=== PATIENT | female | born 1980 | race African-American/Black ===

== ENCOUNTER 2017-08-21 08:34 | Emergency (ER) | payer OTHER, SELFPAY ==
[2017-08-21 09:03] LABS: Bilirubin Negative (Negative); Blood, Urine Negative (Negative); Clarity CLEAR (Clear); Glucose, Urine (Dipstick) Negative (Negative); Leukocyte Trace (Negative); Nitrite Negative (Negative); Protein, Urine (Dipstick) Negative (Neg-Trace); Specific Gravity, Urine 1.015 (1.002-1.036); Urobilinogen 0.2 mg/dL (0.2-1.0)
[2017-08-21 09:05] LABS: Bacteria/HPF None Seen HPF (None Seen); Hyaline Casts/LPF 0-3 HYALINE CAST LPF (0-3 Hyaline); Pathc Cast-AUWi Flag 0.13 (0-2.49); RBC/HPF 0-3 HPF (0-3); Squamous Epithelial 0-3 HPF (0-3); WBC/HPF 0-3 HPF (0-3)
[2017-08-21 09:28] LABS: #Eosinphils 0.1 thou/uL (0.0-0.7); #Lymphocytes 1.5 thou/uL (1.20-3.40); #Monocytes 0.6 thou/uL (0.11-0.59); #Neutrophils 4.2 thou/uL (1.40-6.50); %Basophils 0.6 % (0.0-1.0); %Eosinophils 1.5 % (0.0-10.0); %Lymphocytes 23.5 % (21.0-51.0); %Monocytes 9.9 % (0.0-10.0); %Neutrophils 64.7 % (42.0-75.0); Hemoglobin 13.6 g/dL (12.0-16.0); Mean Corpuscular HGB CONC 32.3 g/dL (32.0-36.0); Mean Corpuscular Hemoglobin 28.2 pg (27.0-31.0); Mean Corpuscular Volume 87.5 fl (81.0-99.0); Mean Platelet Volume 7.4 fL (7.4-10.4); Platelet Count 366 thou/uL (130-400); RBC Distribution Width 13.9 % (11.5-14.5); Red Blood Cell (RBC) Count 4.81 mill/uL (4.20-5.40); White Blood Cell (WBC) Count 6.5 thou/uL (4.8-10.8)
[2017-08-21 09:33] LABS: BHCG - Serum Negative (NEGATIVE); Pregs Control Background? CLEAR/WHITE (CLR/WHITE); Pregs Control Bar Appear? YES (CONTROL BAR)
[2017-08-21] MEDS ORDERED: Ketorolac Tromethamine 30 MG/ML VIAL ONE (09:42)
[2017-08-21] MEDS ORDERED: Dexamethasone 4 mg/ml Vial ONE (09:42)
[2017-08-21 09:57] LABS: ALT (SGPT) 13 U/L (8-55); AST (SGOT) 15 U/L (5-34); Albumin 4.7 g/dL (3.5-5.0); Alkaline Phosphatase 88 U/L (40-150); Anion Gap 14 mmol/L (10-20); BUN (Urea Nitrogen) 5 mg/dL (7.0-18.7); Bilirubin, Total 0.4 mg/dL (0.2-1.2); Calc. Creatinine Clearance 0 mL/min (70-130); Calcium 10.6 mg/dL (7.8-10.44); Carbon Dioxide 25 mmol/L (22-29); Chloride 100 mmol/L (98-107); Estimated GFR-MDRD 88; Globulin 3.5 g/dL (2.4-3.5); Glucose 96 mg/dL (70-105); Lipase 7 U/L (8-78); Potassium 3.4 mmol/L (3.5-5.1); Protein, Total 8.2 g/dL (6.0-8.3); Sodium 136 mmol/L (136-145)
--- NOTE | 2017-08-21 10:23 | CT ---
CT OF THE ABDOMEN AND PELVIS: DATE: 08/21/17. COMPARISON: 03/12/17. HISTORY: Right lower quadrant pain radiating to the right lower back, urinary frequency, and nausea. TECHNIQUE: Serial axial CT imaging is obtained at 5 mm intervals from lung bases through pubic symphysis without contrast. Coronal reformatted imaging obtained. FINDINGS: The lack of contrast media limits assessment of the viscera, bowel, vascular structures, and for lymp hadenopathy. The imaged lung bases appear unremarkable. No free intraperitoneal air or fluid is seen. A fat-containing umbilical hernia is present. The liver, spleen, pancreas, and adrenal glands are grossly unremarkable. There is mild hyperdensity within the gallbladder layering posteriorly, stable, which may signify gallbladder sludge. There is a nonobstructing stone within the lower pole of the left kidney measuring in the 4-5 mm rang e. There is no evidence for obstructive uropathy on the left. The right kidney is atrophic and demonstrates punctate calcifications within the upper and lower pole regions which may signify vascular calcification, cortical calcification, and/or nonobstructing intr arenal stones. There is no evidence for obstructive uropathy on the right. Limited assessment of the bowel demonstrates no evidence for obstruction. The appendix is visualized and is normal. No acute osseous abnormality. IMPRESSION: 1. Subcentimeter renal calcifications bilaterally as above. Stable atrophic right kidney with no ev idence for obstructive uropathy on either side. 2. No evidence for appendicitis. POS: [facility]
[2017-08-21] MEDS ORDERED: Metoclopramide HCl 10 MG/2 ML VIAL ONE (10:25)
== END 2017-08-21 11:13 | disposition home or self-care (01) ==
LOC: ERS 08:34
DX: R10.31 Right lower quadrant pain (principal); R51 Headache; I10 Essential (primary) hypertension; F41.0 Panic disorder [episodic paroxysmal anxiety]; Z79.899 Other long term (current) drug therapy
CPT/HCPCS: 36415; 74176; 80053; 81003; 81015; 83690; 84703; 85025; 96361; 96365; 96375; J1100; J1885; J2765

== ENCOUNTER 2017-10-08 23:30 | Emergency (ER) | payer SELFPAY ==
[2017-10-09 00:20] LABS: #Basophils 0.1 thou/uL (0.0-0.2); #Eosinphils 0.2 thou/uL (0.0-0.7); #Lymphocytes 2.7 thou/uL (1.20-3.40); #Monocytes 1.1 thou/uL (0.11-0.59); %Basophils 0.8 % (0.0-1.0); %Eosinophils 2.7 % (0.0-10.0); %Lymphocytes 29.3 % (21.0-51.0); %Monocytes 12.5 % (0.0-10.0); %Neutrophils 54.7 % (42.0-75.0); Hemoglobin 11.7 g/dL (12.0-16.0); Mean Corpuscular HGB CONC 32.5 g/dL (32.0-36.0); Mean Corpuscular Hemoglobin 28.2 pg (27.0-31.0); Mean Corpuscular Volume 86.8 fl (81.0-99.0); Platelet Count 352 thou/uL (130-400); RBC Distribution Width 14.5 % (11.5-14.5); Red Blood Cell (RBC) Count 4.15 mill/uL (4.20-5.40); White Blood Cell (WBC) Count 9.1 thou/uL (4.8-10.8)
[2017-10-09 00:21] LABS: Pregnancy Test - Urine (BHCG) Negative (Negative); Pregu Control Background? CLEAR/WHITE (CLR/WHITE); Pregu Control Bar Appear? YES (CONTROL BAR)
[2017-10-09 00:27] LABS: Bacteria/HPF Rare-Few HPF (None Seen); Bilirubin Negative (Negative); Blood, Urine Negative (Negative); Clarity CLEAR (Clear); Glucose, Urine (Dipstick) Negative (Negative); Hyaline Casts/LPF 0-3 HYALINE CAST LPF (0-3 Hyaline); Leukocyte Small (Negative); Nitrite Negative (Negative); Pathc Cast-AUWi Flag 0.13 (0-2.49); Protein, Urine (Dipstick) Negative (Neg-Trace); RBC/HPF 0-3 HPF (0-3); Specific Gravity 1.019 (1.002-1.036); Specific Gravity, Urine 1.019 (1.002-1.036); Squamous Epithelial 0-3 HPF (0-3); Urobilinogen 0.2 mg/dL (0.2-1.0); pH, Urine 6.5 (5.0-9.0)
[2017-10-09] MEDS ORDERED: Ketorolac Tromethamine 30 MG/ML VIAL ONE (00:37)
[2017-10-09 00:42] LABS: ALT (SGPT) 11 U/L (8-55); AST (SGOT) 18 U/L (5-34); Alkaline Phosphatase 78 U/L (40-150); Anion Gap 11 mmol/L (10-20); BUN (Urea Nitrogen) 14 mg/dL (7.0-18.7); Bilirubin, Total 0.2 mg/dL (0.2-1.2); Calc. Creatinine Clearance 0 mL/min (70-130); Calcium 9.3 mg/dL (7.8-10.44); Carbon Dioxide 24 mmol/L (22-29); Chloride 106 mmol/L (98-107); Estimated GFR-MDRD 86; Glucose 104 mg/dL (70-105); Potassium 4.1 mmol/L (3.5-5.1); Sodium 137 mmol/L (136-145)
--- NOTE | 2017-10-09 07:23 | CT ---
CT OF THE ABDOMEN AND PELVIS: Date: 10/09/17 COMPARISON: 08/21/17. HISTORY: Right flank pain, history of kidney stones, dysuria. TECHNIQUE: Serial axial CT imaging is obtained at 5 mm intervals from lung bases through pubic symphysis without contrast. Coronal reformatted imaging obtained. FINDINGS: The lack of contrast media limits assessment of the viscera, bowel vascular structures, and for lymph adenopathy. The imaged lung bases are unremarkable. No free intraperitoneal air is noted. The liver, spleen, gallbladder, pancreas, and adrenal glands are unremarkable. Right kidney is atrophic and demonstrates cortical thinning, similar when compared to the prior exam. Punctate calcification overlies the inferior cortex of right kidney. No evidence for obstructive uropathy is seen on the right. There is nonobstructing stone noted in lower pole of left kidney measuring in the 4-5 mm range, stabl e. There is no evidence for obstructive uropathy on the left. There is mild diverticulosis of the sigmoid colon. No evidence for diverticulitis. Limited assessment of the bowel demonstrates no evidence for inflammatory change or obstruction. Osseous structures demonstrate no acute findings. There is lower lumbar spine facet hypertrophy and degenerative change at the lumbosacral junction. IMPRESSION: No acute findings. Stable CT abdomen and pelvis. POS: [facility]
[2017-10-09 22:44] LABS: Chlamydia by PCR Not Detected (NotDetected); GC by PCR Not Detected (NotDetected)
== END 2017-10-09 02:27 | disposition home or self-care (01) ==
LOC: ERS 23:30
DX: R10.9 Unspecified abdominal pain (principal); R30.0 Dysuria; F41.0 Panic disorder [episodic paroxysmal anxiety]; I10 Essential (primary) hypertension; Z87.442 Personal history of urinary calculi; Z79.899 Other long term (current) drug therapy
CPT/HCPCS: 74176; 80053; 81003; 81015; 81025; 85025; 87086; 87480; 87491; 87510; 87591; 87660; 96361; 96372; 96374; J1885

== ENCOUNTER 2018-05-15 16:23 | Emergency (ER) | payer SELFPAY ==
[2018-05-15 16:39] LABS: Bilirubin Negative (Negative); Blood, Urine Negative (Negative); Clarity CLEAR (Clear); Glucose, Urine (Dipstick) Negative (Negative); Leukocyte Negative (Negative); Nitrite Negative (Negative); Protein, Urine (Dipstick) Negative (Neg-Trace); Specific Gravity, Urine 1.016 (1.002-1.036); Urobilinogen 0.2 mg/dL (0.2-1.0); pH, Urine 6.5 (5.0-9.0)
[2018-05-15 16:40] LABS: Pregnancy Test - Urine (BHCG) Negative (Negative); Pregu Control Background? CLEAR/WHITE (CLR/WHITE); Pregu Control Bar Appear? YES (CONTROL BAR); Specific Gravity 1.016 (1.002-1.036)
[2018-05-15] MEDS ORDERED: Ketorolac Tromethamine 30 MG/ML VIAL ONE (17:56)
== END 2018-05-15 18:41 | disposition home or self-care (01) ==
LOC: ERS 16:23
DX: M54.16 Radiculopathy, lumbar region (principal); R30.0 Dysuria; F41.9 Anxiety disorder, unspecified; Z79.899 Other long term (current) drug therapy
CPT/HCPCS: 81003; 81025; 96372; J1885

== ENCOUNTER 2018-09-15 08:56 | Emergency (ER) | payer SELFPAY ==
[2018-09-15] MEDS ORDERED: Ondansetron ODT 4 MG TAB ONE (09:06)
[2018-09-15 09:40] LABS: #Basophils 0.1 thou/uL (0.0-0.2); #Eosinphils 0.5 thou/uL (0.0-0.7); #Monocytes 0.8 thou/uL (0.11-0.59); #Neutrophils 5.3 thou/uL (1.40-6.50); %Basophils 1.2 % (0.0-1.0); %Eosinophils 5.6 % (0.0-10.0); %Lymphocytes 23.6 % (21.0-51.0); %Monocytes 8.8 % (0.0-10.0); %Neutrophils 60.9 % (42.0-75.0); Hemoglobin 11.8 g/dL (12.0-16.0); Mean Corpuscular HGB CONC 32.5 g/dL (32.0-36.0); Mean Corpuscular Hemoglobin 27.6 pg (27.0-31.0); Mean Platelet Volume 6.8 fL (7.4-10.4); Platelet Count 436 thou/uL (130-400); RBC Distribution Width 14.3 % (11.5-14.5); Red Blood Cell (RBC) Count 4.26 mill/uL (4.20-5.40); White Blood Cell (WBC) Count 8.7 thou/uL (4.8-10.8)
[2018-09-15 09:59] LABS: ALT (SGPT) 27 U/L (8-55); AST (SGOT) 15 U/L (5-34); Albumin 4.3 g/dL (3.5-5.0); Alkaline Phosphatase 104 U/L (40-150); Anion Gap 13 mmol/L (10-20); BUN (Urea Nitrogen) 11 mg/dL (7.0-18.7); Bilirubin, Total 0.3 mg/dL (0.2-1.2); Calc. Creatinine Clearance 0 mL/min (70-130); Calcium 9.3 mg/dL (7.8-10.44); Carbon Dioxide 25 mmol/L (22-29); Chloride 104 mmol/L (98-107); Estimated GFR-MDRD Greater than 90; Globulin 2.9 g/dL (2.4-3.5); Glucose 118 mg/dL (70-105); Lipase 70 U/L (8-78); Potassium 3.6 mmol/L (3.5-5.1); Protein, Total 7.2 g/dL (6.0-8.3); Sodium 138 mmol/L (136-145)
[2018-09-15 10:59] LABS: Bilirubin Negative (Negative); Blood, Urine Negative (Negative); Clarity CLEAR (Clear); Glucose, Urine (Dipstick) Negative (Negative); Leukocyte Negative (Negative); Nitrite Negative (Negative); Protein, Urine (Dipstick) Negative (Neg-Trace); Specific Gravity, Urine 1.016 (1.002-1.036); Urobilinogen 0.2 mg/dL (0.2-1.0)
[2018-09-15 11:01] LABS: Pregnancy Test - Urine (BHCG) Negative (Negative); Pregu Control Background? CLEAR/WHITE (CLR/WHITE); Pregu Control Bar Appear? YES (CONTROL BAR); Specific Gravity 1.016 (1.002-1.036)
--- NOTE | 2018-09-15 11:41 | RAD ---
LUMBAR SPINE THREE VIEWS: INDICATIONS: Fall with injury to back. FINDINGS: Lumbar vertebrae maintain normal height and alignment. Disk spaces are maintained. No evidence of s pondylolisthesis or spondylolysis. Five lumbar type vertebrae. IMPRESSION: Unremarkable lumbar spine. POS: [facility]
== END 2018-09-15 15:09 | disposition home or self-care (01) ==
LOC: ERS 08:56
DX: R11.10 Vomiting, unspecified (principal); R19.7 Diarrhea, unspecified; M54.5 Low back pain; I10 Essential (primary) hypertension; F41.0 Panic disorder [episodic paroxysmal anxiety]; W19.XXXA Unspecified fall, initial encounter
CPT/HCPCS: 36416; 72100; 80053; 81003; 81025; 83690; 85025; Q0162

== ENCOUNTER 2018-12-14 08:09 | Emergency (ER) | payer SELFPAY ==
[2018-12-14 08:46] LABS: Bilirubin Negative (Negative); Blood, Urine Negative (Negative); Clarity CLEAR (Clear); Glucose, Urine (Dipstick) Negative (Negative); Leukocyte Negative (Negative); Nitrite Negative (Negative); Protein, Urine (Dipstick) Negative (Neg-Trace); Specific Gravity, Urine 1.008 (1.002-1.036); Urobilinogen 0.2 mg/dL (0.2-1.0)
[2018-12-14 08:51] LABS: Pregnancy Test - Urine (BHCG) Negative (Negative); Pregu Control Background? CLEAR/WHITE (CLR/WHITE); Pregu Control Bar Appear? YES (CONTROL BAR); Specific Gravity 1.008 (1.002-1.036)
[2018-12-14] MEDS ORDERED: Ketorolac Tromethamine 30 MG/ML VIAL ONE (09:07)
== END 2018-12-14 09:26 | disposition home or self-care (01) ==
LOC: ERS 08:09
DX: J04.0 Acute laryngitis (principal); M79.10 Myalgia, unspecified site; I10 Essential (primary) hypertension; F41.0 Panic disorder [episodic paroxysmal anxiety]
CPT/HCPCS: 81003; 81025; 96372; J1885

== ENCOUNTER 2020-06-26 10:43 | Emergency (ER) | payer SELFPAY ==
[2020-06-26] MEDS ORDERED: Lidocaine 1% w/Epinephrine 1:100K 20 ML VIAL ONE ×2 (11:19→11:20)
--- NOTE | 2020-06-26 11:38 | RAD ---
XR Foot Rt 3 View STANDARD History: Foreign body evaluation Comparison: None. Findings: There are at least 3 radiopaque foreign objects along the lateral midfoot. The 2 larger one s are at the plantar lateral aspect of the midfoot and a smaller foreign object measuring 3-4 mm is more posterior. No underlying fracture. Lisfranc interval is maintained. Small plantar calcaneal spur. Impression: At least 3 radiopaque foreign objects as described.
[2020-06-26] MEDS ORDERED: HYDROcodone/Acetaminophen 10/325 mg Tablet ONE (11:50)
--- NOTE | 2020-06-26 13:27 | RAD ---
Exam:3 views right foot HISTORY: Evaluate for retained foreign body. COMPARISON: 06/26/2020 FINDINGS: One of the 2 foreign body has been removed. A second foreign body does remain. There is santiago dence of posttraumatic changes in the soft tissues. No fracture, cortical irregularity or periosteal reaction IMPRESSION: Remaining foreign body.
[2020-06-26] MEDS ORDERED: Midazolam HCl 5 mg/ml Vial ONE (13:40)
[2020-06-26] MEDS ORDERED: Lorazepam 1 MG TAB ONE (14:03)
[2020-06-26] MEDS ORDERED: Fentanyl 100 MCG/2 ML VIAL ONE (14:44)
--- NOTE | 2020-06-26 15:28 | RAD ---
Exam:3 views right foot HISTORY: Foreign body COMPARISON: 06 26 FINDINGS: Stable posttraumatic changes in the soft tissues. Two of the 3 radiopaque foreign bodies a re no longer evident. Single residual foreign body does remain IMPRESSION: Residual solitary foreign body. Results study conveyed to Dr. Valdez 06/26/2020 3:25 PM Code CR
== END 2020-06-26 16:00 | disposition home or self-care (01) ==
LOC: ERS 10:43
DX: S91.321A Laceration with foreign body, right foot, initial encounter (principal); I10 Essential (primary) hypertension; F32.9 Major depressive disorder, single episode, unspecified; F41.9 Anxiety disorder, unspecified; W22.8XXA Striking against or struck by other objects, initial encounter; Z79.899 Other long term (current) drug therapy
CPT/HCPCS: 28190; 96372; J2250; J3010